=== PATIENT | female | born 2000 | race African-American/Black ===

== ENCOUNTER 2024-07-20 10:38 | Emergency (ER) | payer OTHER, MEDICAID ==
[~2024-07-20] VITALS: Ht 175.3 cm; Wt 138.3 kg
[2024-07-20 12:13] VITALS: TEMP 98.3; O2SAT 98
[2024-07-20 13:17] VITALS: BP 124/74; PULSE 64; RESP 18
[2024-07-20] MEDS: MORPHINE SULFATE INJ 2 MG/ml SYRG IM ONE (13:17)
[2024-07-20] MEDS ORDERED: LIDO5DIS21 TOP (13:45)
[2024-07-20] MEDS ORDERED: MELO7.5T7 PO (13:45)
== END 2024-07-20 13:58 | disposition home or self-care (01) ==
LOC: ER 10:38
DX: M54.50 Low back pain, unspecified (principal); Z79.899 Other long term (current) drug therapy; Z88.8 Allergy status to other drugs, medicaments and biological substances
CPT/HCPCS: 72131; 96372; 99285; J2270